=== PATIENT | female | born 1965 | race Caucasian/White ===

== ENCOUNTER 2021-05-21 12:21 | Outpatient (REF) | payer OTHER, SELFPAY ==
--- NOTE | ~2021-05-21 | MM_ITS ---
EXAMINATION: MM SCREENING DIGITAL BREAST TOMOSYNTHESIS, BILATERAL CLINICAL INFORMATION: Screening. Asymptomatic. The lifetime risk of breast cancer based on the Tyrer-Cuzick Model is 8%. COMPARISON: Mammography: 11/21/2018, 11/13/2018 (BI-RADS 0), 10/12/2017 (new baseline) TECHNIQUE: Digital breast tomosynthesis is performed in both the craniocaudal and mediolateral oblique views along with computer-aided detection (CAD). Synthesized 2D images are generated from the tomosynthesis. FINDINGS: The breasts are heterogeneously dense, which may obscure small masses (ACR BI-RADS breast composition Category c). Parenchymal pattern is similar to prior studies. There is no developing density or interval mass or architectural abnormality. The axilla and skin contours are unremarkable. Again, there are scattered bilateral round and dermal calcifications. Some focal increased calcifications are suggested anterior 3:00 left breast, likely coarse. Patient will be recalled for additional views. MM/MM tomosynthesis screening BI IMPRESSION: 1. Left: Some additional calcifications anterior 3:00 position, likely coarse. 2. Right: No mammographic evidence of malignancy. ASSESSMENT: BI-RADS 0: Incomplete - Need Additional Imaging Evaluation RECOMMENDATION: 1. Additional views of the left breast (magnification CC, magnification ML). 2. Radiology department staff will contact the patient for additional imaging. This patient's information was entered into a reminder system with a target due date for their next mammogram.
== END 2021-05-21 12:22 | disposition home or self-care (01) ==
LOC: HO.MAMMO 12:21
PROVIDERS: Visit Provider Nurse Practitioner Primary Care
DX: Z12.31 Encounter for screening mammogram for malignant neoplasm of breast (principal)
CPT/HCPCS: 77063; 77067

== ENCOUNTER 2021-06-04 13:19 | Outpatient (REF) | payer OTHER, SELFPAY ==
--- NOTE | ~2021-06-04 | MM_ITS ---
EXAMINATION: MM DIAGNOSTIC DIGITAL MAMMOGRAPHY, LEFT CLINICAL INFORMATION: Recall from screening for question of focal increased calcifications anterior 3:00 position. COMPARISON: Mammography: 05/21/2021, 11/21/2018, 11/13/2018, 09/27/2017 TECHNIQUE: Digital mammography is performed in the following views: Magnification CC, magnification ML FINDINGS: The breasts are heterogeneously dense, which may obscure small masses (ACR BI-RADS breast composition Category c). Additional magnification views show tightly grouped no calcifications anterior 3:30 o'clock position with some other scattered calcifications in the anterior mid outer left breast. There is likely some minor increased number overall 2018 but no focal significant change when compared with remote standard views. Management plan is for short interval follow-up left mammography in 6 months. Results are discussed with the patient at time of visit. MM/MM added views LT IMPRESSION: Calcifications anterior mid outer left breast without focal significant change when compared with prior standard views. ASSESSMENT: BI-RADS 3: Probably Benign RECOMMENDATION: Diagnostic left mammography in 6 months. This patient's information was entered into a reminder system with a target due date for their next mammogram.
== END 2021-06-04 13:20 | disposition home or self-care (01) ==
LOC: HO.MAMMO 13:19
PROVIDERS: PCP Nurse Practitioner Primary Care; Visit Provider Nurse Practitioner Primary Care
DX: R92.1 Mammographic calcification found on diagnostic imaging of breast (principal)
CPT/HCPCS: 77065

== ENCOUNTER 2021-12-02 14:31 | Outpatient (REF) | payer OTHER, SELFPAY ==
--- NOTE | ~2021-12-02 | MM_ITS ---
EXAMINATION: MM DIAGNOSTIC DIGITAL BREAST TOMOSYNTHESIS, LEFT CLINICAL INFORMATION: Short interval follow-up probable benign calcifications anterior 3:30 left breast. The lifetime risk of breast cancer based on the Tyrer-Cuzick Model is 9%. COMPARISON: Mammography: 06/04/2021, 05/21/2021 (BI-RADS 0), 11/13/2018, 09/27/2017 TECHNIQUE: Digital breast tomosynthesis is performed in both the craniocaudal and mediolateral oblique views along with computer-aided detection (CAD). Synthesized 2D images are generated from the tomosynthesis. Additional magnification left CC and magnification left ML x2 views are obtained. FINDINGS: The breasts are heterogeneously dense, which may obscure small masses (ACR BI-RADS breast composition Category c). Fibronodular parenchymal pattern is similar to prior studies. There is mild stable subareolar duct ectasia. No interval mass or architectural abnormality or developing density. Again, there are scattered round calcifications including loosely grouped stable calcifications posterior upper inner quadrant. The axilla and skin contours are unremarkable. Tightly grouped calcifications anterior 3:30 position are stable from prior diagnostic exam. There are no increasing calcifications or interval pleomorphic types. Calcifications will be reassessed again at next bilateral annual mammography, due in 6 months. Results are provided to the patient at time of visit by the technologist. MM/MM tomosynthesis diagnostic LT IMPRESSION: Probable benign calcifications for follow-up anterior 3:30 position are stable from prior diagnostic exam. ASSESSMENT: BI-RADS 3: Probably Benign RECOMMENDATION: Diagnostic mammography at time of annual bilateral exam, due in 6 months. This patient's information was entered into a reminder system with a target due date for their next mammogram.
== END 2021-12-02 14:32 | disposition home or self-care (01) ==
LOC: HO.MAMMO 14:31
PROVIDERS: Visit Provider Nurse Practitioner Primary Care
DX: R92.1 Mammographic calcification found on diagnostic imaging of breast (principal)
CPT/HCPCS: 77061; 77065

== ENCOUNTER 2022-08-09 12:23 | Outpatient (REF) | payer OTHER, SELFPAY ==
--- NOTE | ~2022-08-09 | MM_ITS ---
EXAMINATION: MM DIAGNOSTIC DIGITAL BREAST TOMOSYNTHESIS, BILATERAL CLINICAL INFORMATION: Due for yearly, follow-up probable benign calcifications anterior outer left breast. The lifetime risk of breast cancer based on the Tyrer-Cuzick Model is 9%. COMPARISON: Multiple prior mammography, most recent 12/02/2021. TECHNIQUE: Digital breast tomosynthesis is performed in both the craniocaudal and mediolateral oblique views along with computer-aided detection (CAD). Synthesized 2D images are generated from the tomosynthesis. Additional magnification left CC and magnification left ML views are obtained. FINDINGS: The breasts are heterogeneously dense, which may obscure small masses (ACR BI-RADS breast composition Category c). There is a fibronodular parenchymal pattern again noted. The right breast is stable with no dominant mass or architectural abnormality or developing density. The left breast has a smooth oval nodule possibly a cyst posterior central breast approximately 0.5 x 0.7 cm, increased in size from prior studies. This is noted after patient left office. Patient will be recalled for additional imaging with targeted ultrasound. The remainder the left breast parenchyma shows no significant mass or architectural abnormality or developing density. The calcifications for follow-up anterior outer breast show scattered loosely grouped stable calcifications as well as a tighter group of more numerous heterogeneous calcifications which vary in size. These calcifications are slightly increased from prior exams and stereotactic sampling is therefore recommended. Preliminary results are discussed with the patient at time of visit. MM/MM tomosynthesis diagnostic BI IMPRESSION: Left: -Subcentimeter smooth nodule posterior central breast increased in size, possibly a cyst. -Grouped heterogeneous calcifications anterior outer breast. Right: -No mammographic evidence of malignancy. ASSESSMENT: BI-RADS 4: Suspicious (subcategory 4A: Low suspicion for malignancy) RECOMMENDATION: -Targeted ultrasound left breast prior to stereotactic procedure. -Stereotactic biopsy grouped heterogeneous left breast calcifications. This patient's information was entered into a reminder system with a target due date for their next mammogram.
== END 2022-08-09 12:24 | disposition home or self-care (01) ==
LOC: HO.MAMMO 12:23
PROVIDERS: Visit Provider Nurse Practitioner Primary Care
DX: R92.1 Mammographic calcification found on diagnostic imaging of breast (principal)
CPT/HCPCS: 77062; 77066

== ENCOUNTER 2022-08-10 14:23 | Outpatient (REF) | payer OTHER, SELFPAY ==
--- NOTE | ~2022-08-10 | US_ITS ---
EXAMINATION: US DIAGNOSTIC ULTRASOUND BREAST, LEFT CLINICAL INFORMATION: Smooth oval nodule posterior central lower left breast increased in size from prior studies, possibly a cyst. COMPARISON: Prior mammography exams, most recent 08/09/2022. TECHNIQUE: Ultrasound left breast is targeted to the 4:00 through 8:00 position using grayscale imaging and color Doppler without and with harmonics. FINDINGS: There is a simple cyst 6:00 position 9 cm from nipple measuring 0.7 cm, anechoic, circumscribed, with increased through-transmission of sound. No associated color flow. There is no solid mass or architectural abnormality. Results are discussed with the patient at time of visit. Patient has appointment later this week for tissue sampling left breast calcifications unrelated to today's imaging. US/US breast LT limited IMPRESSION: -Simple cyst 6:00 position measuring 0.7 cm corresponding to recent mammography. ASSESSMENT: BI-RADS 2: Benign RECOMMENDATION: -The simple cyst is benign and does not require any special follow up. See comment. -COMMENT: Patient has appointment later this week for tissue sampling left breast calcifications unrelated to today's imaging. This patient's information was entered into a reminder system with a target due date for their next mammogram.
== END 2022-08-10 14:24 | disposition home or self-care (01) ==
LOC: HO.MAMMO 14:23
PROVIDERS: Visit Provider Nurse Practitioner Primary Care
DX: N63.25 Unspecified lump in the left breast, overlapping quadrants (principal)
CPT/HCPCS: 76642

== ENCOUNTER 2022-08-12 08:52 | Outpatient (REF) | payer OTHER, SELFPAY ==
--- NOTE | ~2022-08-12 | MM_ITS ---
EXAMINATION: STEREOTACTIC TOMOSYNTHESIS-GUIDED VACUUM-ASSISTED BREAST BIOPSY, LEFT SPECIMEN RADIOGRAPH, LEFT POST PROCEDURE DIGITAL MAMMOGRAM, LEFT CLINICAL INFORMATION: Calcifications anterior outer left breast for stereotactic sampling. COMPARISON: Mammography 08/09/2022, 12/02/2021, left breast ultrasound 08/10/2022 . TECHNIQUE/PROCEDURE: Informed consent was obtained from the patient after discussion of the benefits, risks, and alternatives to biopsy today. Patient appeared to understand. Gave opportunity for questions. Patient signed consent form. BIOPSY TABLE: [employer] Wireless Affirm Prone Biopsy System. LESION: Fine heterogeneous calcifications anterior central outer left breast. LOCAL ANESTHESIA: 10 mL carbonated 1% lidocaine; 10 mL 2% lidocaine with epinephrine. DERMATOTOMY: Single skin alvarez dermatotomy performed. NEEDLE: [employer]24 Eviva 9-gauge vacuum assisted core biopsy device. APPROACH: Caudal Cranial. TARGETING: Combination of digital breast tomosynthesis and stereotactic digital mammography used for targeting. CORES: 6. CLIP: [employer] SecurMark Cylinder-shaped marker. SPECIMEN RADIOGRAPH: Specimen radiograph is taken in separate room using digital mammography. The index calcifications are in the excised cores. There are at least 15 calcifications in the cores. POST PROCEDURE UNILATERAL DIGITAL MAMMOGRAM: The post biopsy mammogram is performed in separate room using separate digital mammography equipment from the biopsy procedure. CC and ML views are obtained. The breasts are heterogeneously dense, which may obscure small masses (breast composition category: c). The clip marker is in position. The calcifications are markedly decreased at the biopsy site. No gross hematoma. The patient tolerated the procedure well. No immediate complications. Home instructions reviewed with the patient. Final pathology results are pending. MM/MM stereotactic biopsy LT IMPRESSION: 1. Digital tomosynthesis-guided core biopsy left breast with clip placement. 2. Specimen radiograph taken and post procedure mammogram. There is satisfactory positioning of the biopsy clip. 3. Final pathology results pending. An addendum report will be issued.
[2022-08-12] MEDS: Lidocaine HCl 1 % 20 ML VIAL 9 ML SUBCUT (11:42)
[2022-08-12] MEDS: Sodium Bicarbonate 8.4% 50 MEQ/50 ML VIAL SUBCUT (11:43)
== END 2022-08-12 08:53 | disposition home or self-care (01) ==
LOC: HO.MAMMO 08:52
PROVIDERS: PCP Nurse Practitioner Primary Care; Visit Provider Surgery
DX: R92.1 Mammographic calcification found on diagnostic imaging of breast (principal)
CPT/HCPCS: 19081; 88305; 99202; A4648

== ENCOUNTER → 2022-08-19 10:23 | Outpatient (BNVA) | payer OTHER, SELFPAY | PROVIDERS: PCP Nurse Practitioner Primary Care; Visit Provider Surgery | DX: D36.9 Benign neoplasm, unspecified site (principal) | CPT/HCPCS: 99212 ==

== ENCOUNTER 2022-12-30 10:22 | Outpatient (REF) | payer OTHER, SELFPAY ==
--- NOTE | ~2022-12-30 | MM_ITS ---
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 No malignancy identified. The lifetime risk of breast cancer based on the Tyrer-Cuzick Model is 9%. COMPARISON: Mammography: Stereotactic biopsy 08/12/2022. Mammography 08/09/2022, 12/02/2021. Mammography dating back to 05/21/2021. TECHNIQUE: Digital breast tomosynthesis is performed in both the craniocaudal and mediolateral oblique views along with computer-aided detection (CAD). Synthesized 2D images are generated from the tomosynthesis. In addition, left magnification CC and mediolateral views were performed. FINDINGS: The breasts are heterogeneously dense, which may obscure small masses (ACR BI-RADS breast composition Category c). There is a cylinder shaped chip biopsy clip in the left breast anterior slightly outer aspect, marking the site of stereotactic biopsy. The biopsy and clip appears to have likely migrated approximately 1 cm anteromedial to the biopsied papilloma. There are a few residual coarse calcifications posterior and lateral to the biopsy clip, which have a benign appearance and are unchanged. No new suspicious abnormalities. There is a stable small oval circumscribed 7 mm mass in the 6:00 position of the left breast, posterior depth, which was a simple cyst on prior ultrasound. No new suspicious abnormalities within the left breast. Results are provided to the patient at time of visit by the technologist. MM/MM tomosynthesis diagnostic LT IMPRESSION: Benign findings left breast related to biopsy of benign sclerosing papilloma as detailed above. Recommend the patient return to routine annual screening mammography to include both breasts. ASSESSMENT: BI-RADS BI-RADS 2 - Benign Findings RECOMMENDATION: 1 year F/U This patient's information was entered into a reminder system with a target due date for their next mammogram.
== END 2022-12-30 10:23 | disposition home or self-care (01) ==
LOC: HO.MAMMO 10:22
PROVIDERS: PCP Nurse Practitioner Primary Care; Visit Provider Surgery
DX: D36.9 Benign neoplasm, unspecified site (principal); N63.25 Unspecified lump in the left breast, overlapping quadrants
CPT/HCPCS: 77061; 77065

== ENCOUNTER → 2022-12-30 11:30 | Outpatient (BNV) | payer OTHER, SELFPAY | PROVIDERS: PCP Nurse Practitioner Primary Care; Visit Provider Radiology Diagnostic Radiology | DX: D24.2 Benign neoplasm of left breast (principal) | CPT/HCPCS: 77061; 77065 ==

== ENCOUNTER 2023-08-11 09:20 | Outpatient (REF) | payer OTHER, SELFPAY ==
--- NOTE | ~2023-08-11 | MM_ITS ---
EXAMINATION: MM SCREENING DIGITAL BREAST TOMOSYNTHESIS, BILATERAL CLINICAL INFORMATION: Screening. Asymptomatic. COMPARISON: Mammography: This study is compared with prior exams dating back to 2019. TECHNIQUE: Digital breast tomosynthesis is performed in both the craniocaudal and mediolateral oblique views along with computer-aided detection (CAD). Synthesized 2D images are generated from the tomosynthesis. FINDINGS: The breasts are heterogeneously dense, which may obscure small masses (ACR BI-RADS breast composition Category c). There are no significant masses, abnormal calcifications, or other abnormalities. There is a tissue marker present in the left breast from prior benign percutaneous biopsy. There are few, bilateral benign calcifications in each breast. MM/MM tomosynthesis screening BI IMPRESSION: No mammographic evidence of malignancy. ASSESSMENT: BI-RADS BI-RADS 2 - Benign Findings RECOMMENDATION: Routine annual mammography screening. 1 year F/U This examination should not preclude the clinical evaluation of a suspicious palpable abnormality. This patient's information was entered into a reminder system with a target due date for their next mammogram.
== END 2023-08-11 09:21 | disposition home or self-care (01) ==
LOC: HO.MAMMO 09:20
PROVIDERS: PCP Nurse Practitioner Primary Care; Visit Provider Surgery
DX: Z12.31 Encounter for screening mammogram for malignant neoplasm of breast (principal)
CPT/HCPCS: 77063; 77067

== ENCOUNTER → 2023-08-11 10:15 | Outpatient (BNV) | payer OTHER, SELFPAY | PROVIDERS: PCP Nurse Practitioner Primary Care; Visit Provider Radiology Diagnostic Radiology | DX: Z12.31 Encounter for screening mammogram for malignant neoplasm of breast (principal) | CPT/HCPCS: 77063; 77067 ==

== ENCOUNTER 2024-08-16 09:20 | Outpatient (REF) | payer OTHER, SELFPAY ==
--- OUTSIDE RECORDS SUMMARY | 2024-08-16 11:14 | XMS_ITS | Encounter Summary ---
Author Organization [employer] Address [address] [place] [address] Care Team Providers Care Manufacturing Development Engineer Name Role Phone Florecita Ibarra Primary Care Provider [phone] Encounter Details Date Type Department Care Team (Late st Contact Info) Description 02/15/2023 Orders Only [facility] [address] [place] [address] Provider, MD Valentin Social History Tobacco Use Types Packs/Day Years Used Date Smoking Tobacco: Never Smokeless Tobacco: Never Comments Unknown Sex and Gender Information Value Date Recorded Sex Assigned at Female 03/22/2022 10:23 AM EDT Legal Sex Female 10:23 AM EDT Gender Identity Female 03/22/2022 10:23 AM EDT Sexual Orientation Straight 03/22/2022 10 :23 AM EDT documented as of this encounter Plan of Treatment Not on file documented as of this encounter Procedures Procedure Name Priority Date/Time Associated Diagnosis Comments MAMMOGRAPHY Routine 12/30/2022 documented in this encounter Results * Hm Mammography (12/30/2022) Anatomical Region Laterality Modality Other us Historical Provider HEALTH MAINTENANCE Final Result documented in this encounter Visit Diagnoses Not on filedocumented in this encounter Care Teams Manufacturing Development Engineer Relationship Specialty Start Date End Date Florecita Ibarra ANP [address] [place] [address] PCP - General Family Medicine 11/13/19 documented as of this encounter
--- OUTSIDE RECORDS SUMMARY | 2024-08-16 11:14 | XMS_ITS | Clinical Summary ---
Author Organization [employer] Address 75 [facility] 7t [place] [address] Care Team Providers Care Travel Service Consultant Name Role Phone Florecita Ibarra Primary Care Provider [phone] Allergies No known active allergies Medications diphenhydrAMINE (BENADryl) 25 MG tablet Take 1 tablet (25 mg) by mouth 2 times daily. 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 90 tablet 2 024 Active atorvastatin (Lipitor) 20 MG tablet TAKE 1 TABLET BY MOUTH EVERYDAY AT BEDTIME 90 tablet 025 Active metFORMIN (Glucophage) 500 MG tabletIndications:Hy perglycemia TAKE 1 TABLET BY MOUTH TWICE A DAY WITH BREAKFAST AND DINNER 180 tablet 025 Active chlorthalidone (Hygroton) 50 MG tabletIndications:Es sential hypertension TAKE 1 TABLET BY MOUTH EVERY DAY IN THE MORNING 90 tablet 1 025 Active fenofibrate micronized (Antara) 130 MG capsuleIndications:P ure hyperglyceridemia TAKE 1 CAPSULE (130 MG) BY MOUTH ONCE PER DAY. 90 capsule 025 Active atenolol (Tenormin) 50 MG tabletIndications:Es sential hypertension TAKE 1 TABLET BY MOUTH EVERY DAY IN THE MORNING 90 tablet 025 Active FreeStyle lancetsIndications:H yperglycemia 1 each by Other route 2 times daily. USE TO TEST BLOOD SUGAR TWICE A DAY 100 each 2 025 Active FreeStyle lancetsIndications:H yperglycemia USE 1 LANCET BY TO SKIN ROUTE 2 TIMES EVERY DAY 100 each 11 024 2024 Discontinued Encounters Date Type Department Care Team Description 07/31/2024 Refill [facility] [address] [place] [address] Florecita Ibarra ANP Hyperglycemia 06/13/2024 Refill [facility] [address] [place] [address] Florecita Ibarra ANP Essential hypertension 06/08/2024 Refill [facility] [address] [place] [address] Florecita Ibarra ANP Hyperglycemia; Essential hypertension; Pure hyperglyceridemia 06/04/2024 Refill [facility] [address] [place] [address] Florecita Ibarra ANP 05/31/2024 Patient Outreach [address] [address] Florecita Ibarra ANP Pre-visit Planning (SDOH Screening negative and Tobacco screening negative) from Last 3 Months Social History Tobacco Use Types Packs/Day Years Used Date Smoking Tobacco: Never Smokeless Tobacco: Never Tobacco Cessation:Counseling Given: Not Answered Housing Stability Answer Date Recorded What is your housing situation today? I have martita garcia 05/31/[address] you li ve. Do you have problems with any of the following? None of the above 05/31/2024 Food Insecurity Answer Date Recorded Within the past 12 months, y ou worried that your food would run out before you got money to buy more: Never True 05/31/2024 Within the past 12 months,th e food you bought just didn't last and you didn't have enough money to get more: Never True 01/2025 Transportation Answer Date Recorded In the past 12 months, has l ack of transportation kept you from medical appts, meetings, work or from getting things needed for daily living? No 05/31/2024 Utilities Answer Date Recorded In the past 12 months, has t he electric, gas, oil or water company threatened to shut off services in your home? No 05/31/2024 Internet Access Answer Date Recorded Internet Access Q1 No 05/31/2024 Internet Access Q2 I do not want or need it 01/2025 Comments Unknown Sex and Gender Information Value Date Recorded Sex Assigned at Female 03/22/2022 10:23 AM EDT Legal Sex Female 10:23 AM EDT Gender Identity Female 03/22/2022 10:23 AM EDT Sexual Orientation Straight 03/22/2022 10 :23 AM EDT Last Filed Vital Signs Vital Sign Reading Time Taken Comments Blood Pressure 112/66 11/03/2022 9:32 AM EDT Pulse 94 11/03/2022 9:32 AM EDT Temperature 36.7 ??C (98 ??F) 11/03/2022 9:32 AM EDT Respiratory Rate 16 11/03/2022 9:32 AM EDT Oxygen Saturation 98% 11/03/2022 9:32 AM EDT Inhaled Oxygen Concentration - - Weight 65.4 kg (144 lb 3.2 oz) 11/01/2022 9:45 A M EDT Height 162.6 cm (5' 4 ) 11/03/2022 9:32 AM EDT Body Mass Index 26.37 11/01/2022 9:45 AM EDT Plan of Treatment Health Maintenance Due Date Last Done Comments CT Colonography 1963 Colonoscopy 1963 Colorectal Cancer Screening 1963 Depression Screening 1963 FIT DNA/Cologuard 1963 FIT 1963 FOBT 1963 Sigmoidoscopy 1963 Alcohol/Substance Use Screening 1975 Pap Smear 1984 Pneumococcal Vaccine: 50+ Years (2 of 2 - PCV) 05/14/2020 05/14/2019 Cervical Cancer Screening 12/07/2022 HPV/Cotest 12/07/2022 12/07/2017 SDOH Screening 05/31/2025 05/31/2024 Tobacco Screening 05/31/2025 05/31/2024 Mammogram 09/12/2025 09/13/2023, 04/07/2023, 08/11/2023, Additional history exists Lipid Panel 01/09/2026 01/09/2021 DTaP/Tdap/Td Vaccines (2 - Td or Tdap) 05/14/2029 05/14/2019 RSV Patients and Patients Aged 60 years or older (1 - 1-dose 75+ series) 2038 HIV Screening Completed 01/09/2021 Hepatitis C Screening Completed 01/09/2021 Zoster Vaccines Completed 06/03/2021, 03/20/2021 COVID-19 Vaccine Completed 01/21/2024, 11/2020, 09/29/2020 Influenza Vaccine Completed 01/21/2024, , 03/26/2020, Additional history exists HIB Vaccines Aged Out No longer eligi ble based on patient's age to complete this topic HPV Vaccines Aged Out No longer eligi ble based on patient's age to complete this topic Hepatitis A Vaccines Aged Out No long er eligible based on patient's age to complete this topic Hepatitis B Vaccines Aged Out No long er eligible based on patient's age to complete this topic IPV Vaccines Aged Out No longer eligi ble based on patient's age to complete this topic Meningococcal Vaccine Aged Out No jak fernandez eligible based on patient's age to complete this topic RSV under 20 months Aged Out No longe r eligible based on patient's age to complete this topic Rotavirus Vaccines Aged Out No longer eligible based on patient's age to complete this topic Procedures Procedure Name Priority Date/Time Associated Diagnosis Comments MAMMOGRAPHY Routine 09/13/2023 11:33 AM EDT ZZZ HISTORICAL HEPATITIS C AB W/REFL TO HCV RNA, QN, PCR Routine 01/09/2021 8:40 AM EDT HIV 1/2 ANTIGEN/ANTIBODY, FOURTH GENERATION W/RFL Routine 01/09/2021 8:40 AM EDT LIPID PANEL, STANDARD Routine 01/09/2021 8:40 AM EDT ZZZ HISTORICAL HPV MRNA E6/E7 Routine 12/07/2017 10:43 AM EDT from Last 3 Months or Most Recently Relevant to Health Maintenance Results * Mammography (09/13/2023 11:33 AM EDT) Mammogram BIRADS 2 Normal, Abnormal, BIRADS 1 , BIRADS 2 Anatomical Region Laterality Modality Other Historical Provider HEALTH MAINTENANCE Final Result * HEPATITIS C AB W/REFL TO HCV RNA, QN, PCR (01/09/2021 8:40 AM EDT) HEPATITIS C ANTIBODY NON-REACT ADRI NON-REACT ADRI [facility] INDEX 0.01 <1.00 [facility] Comment: ?? HCV antibody was non-reactive. There is no laboratory ?? evidence of HCV infection. ?? In most cases, no further action is required. However, if recent HCV exposure is suspected, a test for HCV RNA (test code 94005) is suggested. ?? For additional information please refer to http://Context Matters.Shuttlerock/faq/TTM85i6 (This link is being provided for informational/ educational purposes only.) ?? 01/09/2021 8:40 AM EDT Florecita Ibarra ANP HISTORICAL/NON ORDERABLE LABS Fi nal Result [facility] [address] * HIV 1/2 ANTIGEN/ANTIBODY,FOURTH GENERATION W/RFL (01/09/2021 8:40 AM EDT) HIV-1/2 ANTIGEN AND ANTIBODIES, 4TH GENERATION W/ REFLEX NON-REACT ADRI NON-REACT ADRI [facility] Comment: HIV-1 antigen and HIV-1/HIV-2 antibodies were not detected. There is no laboratory evidence of HIV infection. ?? PLEASE NOTE: This information has been disclosed to you from records whose confidentiality may be protected by state law. ??If your state requires such protection, then the state law prohibits you from making any further disclosure of the information without the specific written consent of the person to whom it pertains, or as otherwise permitted by law. A general authorization for the release of medical or other information is NOT sufficient for this purpose. ? For additional information please refer to http://Context Matters.Shuttlerock/faq/BST001 (This link is being provided for informational/ educational purposes only.) ? The performance of this assay has not been clinically validated in patients less than 2 years old. ?? 01/09/2021 8:40 AM EDT Florecita Ibarra ANP LAB BLOOD ORDERABLES Final Resul t Performing Organization Address [facility] [[email or web address]] de Phone Number [facility] [address] [place] [address], * (ABNORMAL) LIPID PANEL, STANDARD (01/09/2021 8:40 AM EDT) Chol/HDLC Ratio 4.3 <5.0 (calc) [facility] Cholesterol, Total 150 <200 mg/dL [facility] HDL Cholesterol 35(L) > OR = 50 mg/dL [facility] LDL Cholesterol 87 mg/dL (calc) [facility] Comment: Reference range: <100 ?? Desirable range <100 mg/dL for primary prevention; ?? <70 mg/dL for patients with CHD or diabetic patients ?? with > or = 2 CHD risk factors. ?? LDL-C is now calculated using the Carolyn ?? calculation, which is a validated novel method providing ?? better accuracy than the Friedewald equation in the ?? estimation of LDL-C. ?? Mino VENTURA et al. KADE. 2013;310(19): 7225-8052 ?? (http://education.Glow/faq/FUQ927) Non-HDL Cholesterol 115 <130 mg/dL (calc) [facility] Comment: For patients with diabetes plus 1 major ASCVD risk ?? factor, treating to a non-HDL-C goal of <100 mg/dL ?? (LDL-C of <70 mg/dL) is considered a therapeutic ?? option. Triglycerides 182(H) <150 mg/dL [facility] 01/09/2021 8:40 AM EDT us Florecita Ibarra ANP LAB BLOOD ORDERABLES Final Resul t Performing Organization Address [facility] Phone Number [facility] [address] [place] [address], * HPV mRNA E6/E7 (12/07/2017 10:43 AM EDT) HPV mRNA E6/E7 Not Detected NOT DETECTED [facility] Comment: This test was performed using the APTIMA(R) HPV Assay ([employer] This assay detects E6/E7 viral messenger RNA (mRNA) from 14 high-risk HPV types (16,18,31,33,35,39,45,51, 52,56,58,59,66,68). For additional information please refer to: http://education.Shuttlerock/faq/RLN770o3 (This link is being provided for informational/ educational purposes only.) The analytical performance characteristics of this assay have been determined by [employer] [place], [place]. The modifications have not been cleared or approved by the FDA. This assay has been validated pursuant to the CLIA regulations and is used for clinical purposes. Test Performed by [facility] [place], [employer] [place], [address] [place] [address] aLrry Jennings M.D., Ph.D., Director of Laboratories , CLIA [id number] Please note: ??Effective 02/02/2016, HPV testing will be performed using [employer]'s APTIMA test which targets mRNA. Detecting mRNA instead of DNA, as in older methods, offers significant improvements in specificity. 12/07/2017 10:4 3 AM EDT Farideh Noe CNM HISTORICAL/NON ORDERABLE LABS Final Result [facility] [address] from Last 3 Months or Most Recently Relevant to Health Maintenance Insurance [facility] DIRECT Care Teams Travel Service Consultant Relationship Specialty Start Date End Date Florecita Ibarra ANP [address] [place] [id number] PCP - General Family Medicine 11/13/19
--- OUTSIDE RECORDS SUMMARY | 2024-08-16 11:14 | XMS_ITS | Encounter Summary ---
Author Organization [employer] Address [address] [facility] 7t [place] [address] Care Team Providers Care Director Radiation Oncology Name Role Phone Florecita Ibarra Primary Care Provider [phone] Reason for Visit * Reason Comments Med Refill Encounter Details Date Type Department Care Team (Late st Contact Info) Description 03/16/2023 Refill [facility] [address] [place] [address] Jessie Coleman MD [address] [place] [address] Social History Tobacco Use Types Packs/Day Years [...] on file documented as of this encounter Visit Diagnoses Not on filedocumented in this encounter Care Teams Director Radiation Oncology Relationship Specialty Start Date End Date Florecita Ibarra ANP [address] [place] [address] PCP - General Family Medicine 11/13/19 documented as of this encounter
--- OUTSIDE RECORDS SUMMARY | 2024-08-16 11:14 | XMS_ITS | Encounter Summary ---
Author Organization [employer] Address [address] [facility] 7t [place] [address] Care Team Providers Care General Operations Manager Name Role Phone Florecita Ibarra Primary Care Provider [phone] Reason for Visit * Reason Comments Med Refill Encounter Details Date Type Department Care Team ([facility] st Contact Info) Description 07/31/2024 Refill [facility] [address] [place] [address] Florecita Ibarra ANP [address] [place] [address] Hyperglycemia Social History Tobacco Use Types Packs/Day Years Used Date Smoking Tobacco: Never Smokeless Tobacco: Never Housing Stability Answer Date Recorded What is [...] documented as of this encounter Visit Diagnoses Diagnosis Hyperglycemia Other abnormal glucose documented in this encounter Care Teams General Operations Manager Relationship Specialty Start Date End Date Florecita Ibarra ANP [address] [place] [address] PCP - General Family Medicine 11/13/19 documented as of this encounter
--- OUTSIDE RECORDS SUMMARY | 2024-08-16 11:14 | XMS_ITS | Encounter Summary ---
Author Organization [employer] Address [address] [facility] 7t [place] [address] Care Team Providers Care Verification Rep Name Role Phone Florecita Ibarra Primary Care Provider [phone] Reason for Visit * Reason Comments Med Refill Encounter Details Date Type Department Care Team (Late st Contact Info) Description 01/19/2024 Refill [facility] [address] [place] [address] Florecita Ibarra ANP [address] [place] [address] Pure hyperglyceridemia Social History Tobacco Use Types Packs/Day Years [...] as of this encounter Visit Diagnoses Diagnosis Pure hyperglyceridemia documented in this encounter Care Teams Verification Rep Relationship Specialty Start Date End Date Florecita Ibarra ANP [address] [place] [address] PCP - General Family Medicine 11/13/19 documented as of this encounter
--- OUTSIDE RECORDS SUMMARY | 2024-08-16 11:14 | XMS_ITS | Encounter Summary ---
Author Organization [employer] Address [address] [facility] 7t [place] [address] Care Team Providers Care Credit Support Specialist Name Role Phone Florecita Ibarra Primary Care Provider [phone] Encounter Details Date Type Department Care Team (Late st Contact Info) Description 09/13/2023 Abstract [facility] [address] [place] [address] Florecita Ibarra ANP [address] [place] [address] Social History Tobacco Use Types Packs/Day Years [...] Comments MAMMOGRAPHY Routine 09/13/2023 11:33 AM EDT documented in this encounter Results * Mammography (09/13/2023 11:33 AM EDT) Mammogram BIRADS 2 Normal, Abnormal, BIRADS 1 , BIRADS 2 Anatomical Region Laterality Modality Other Historical Provider HEALTH MAINTENANCE Final Result documented in this encounter Visit Diagnoses Not on filedocumented in this encounter Care Teams Credit Support Specialist Relationship Specialty Start Date End Date Florecita Ibarra ANP [address] [place] [address] PCP - General Family Medicine 11/13/19 documented as of this encounter
--- OUTSIDE RECORDS SUMMARY | 2024-08-16 11:14 | XMS_ITS | Encounter Summary ---
Author Organization [employer] Address [address] [facility] 7t [place] [address] Care Team Providers Care Funeral Greeter Name Role Phone Florecita Ibarra Primary Care Provider Encounter Details Date Type Department Care Team (Late st Contact Info) Description 12/20/2022 Orders Only [facility] [address] [place] [address] Lorna Whitten LPN Social History Tobacco Use Types Packs/Day Years [...] on filedocumented in this encounter Care Teams Funeral Greeter Relationship Specialty Start Date End Date Florecita Ibarra ANP [address] [place] [address] PCP - General Family Medicine 11/13/19 documented as of this encounter
--- OUTSIDE RECORDS SUMMARY | 2024-08-16 11:14 | XMS_ITS | Encounter Summary ---
Author Organization [employer] Address 75 [facility] 7t [place] [address] Care Team Providers Care Pool Table Mechanic Name Role Phone Florecita Ibarra Primary Care Provider [phone] Reason for Visit * Reason Comments Med Refill Encounter Details Date Type Department Care Team (Late st Contact Info) Description 04/17/2023 Refill [facility] [address] [place] [address] Jessie Coleman MD [address] [place] [address] Social History Tobacco Use Types Packs/Day Years [...] on filedocumented in this encounter Care Teams Pool Table Mechanic Relationship Specialty Start Date End Date Florecita Ibarra ANP [address] [place] [address] PCP - General Family Medicine 11/13/19 documented as of this encounter
--- OUTSIDE RECORDS SUMMARY | 2024-08-16 11:14 | XMS_ITS | Encounter Summary ---
Author Organization [employer] Address [address] [facility] 7t [place] [address] Care Team Providers Care Mangle Catcher Name Role Phone Florecita Ibarra Primary Care Provider [phone] Encounter Details Date Type Department Care Team (Late st Contact Info) Description 12/28/2022 Orders Only [facility] PEDS [address] [place] [address] Ruby Cardoza LPN Social History Tobacco Use Types Packs/Day [...] on filedocumented in this encounter Care Teams Mangle Catcher Relationship Specialty Start Date End Date Florecita Ibarra ANP [address] [place] [address] PCP - General Family Medicine 11/13/19 documented as of this encounter
--- OUTSIDE RECORDS SUMMARY | 2024-08-16 11:14 | XMS_ITS | Encounter Summary ---
Author Organization [employer] Address [address] [facility] 7t [place] [address] Care Team Providers Care Reel Assembler Name Role Phone Florecita Ibarra Primary Care Provider [phone] Encounter Details Date Type Department Care Team (Late st Contact Info) Description 09/13/2023 Abstract [facility] [address] [place] [address] Florecita bIarra ANP [address] [place] [address] Social History Tobacco Use Types Packs/Day Years [...] on filedocumented in this encounter Care Teams Reel Assembler Relationship Specialty Start Date End Date Florecita Ibarra ANP [address] [place] [address] PCP - General Family Medicine 11/13/19 documented as of this encounter
--- OUTSIDE RECORDS SUMMARY | 2024-08-16 11:15 | XMS_ITS | Encounter Summary ---
Author Organization [employer] Address [address] [facility] 7t [place] [address] Care Team Providers Care Hospital Administrator Name Role Phone Florecita Ibarra Primary Care Provider [phone] Reason for Visit * Reason Onset Date Comments Med Refill 01/19/2024 Encounter Details Date Type Department Care Team ([facility] st Contact Info) Description 01/19/2024 Telephone [facility] [address] [place] [address] Florecita Ibarra ANP [address] [place] [address] Med Refill Social History Tobacco Use Types Packs/Day Years Used Date Smoking Tobacco: Never Smokeless Tobacco: Never Comments Unknown Sex and Gender Information Value Date Recorded Sex Assigned at Female 03/22/2022 10:23 AM EDT Legal Sex Female 10:23 AM EDT Gender Identity Female 03/22/2022 10:23 AM EDT Sexual Orientation Straight 03/22/2022 10 :23 AM EDT documented as of this encounter Miscellaneous Notes * Telephone Encounter - Lorna Whitten LPN - 01/19/2024 4:25 PM EDT Medication pended to PCP. * Telephone Encounter - Cheryl Weeks - 01/19/2024 4:24 PM EDT TC from pt requesting medication refill. Medications needing refill : FREESTYLE LITE test strip To be sent to: [facility] Pharmacy documented in this encounter Plan of Treatment Not on file documented as of this encounter Visit Diagnoses Not on filedocumented in this encounter Care Teams Hospital Administrator Relationship Specialty Start Date End Date Florecita Ibarra ANP [address] [place] [address] PCP - General Family Medicine 11/13/19 documented as of this encounter
--- OUTSIDE RECORDS SUMMARY | 2024-08-16 11:16 | XMS_ITS | Encounter Summary ---
Author Organization [employer] Address 75 [facility] [address] [address] Care Team Providers Care Vending Supervisor Name Role Phone Florecita Ibarra Primary Care Provider [phone] Encounter Details Date Type Department Care Team (Late st Contact Info) Description 06/02/2022 Telephone [facility] [address] [place] [address] Florecita Ibarra ANP [address] [place] [address] Social History Tobacco Use Types Packs/Day Years Used Date Smoking Tobacco: Never Assessed Comments Unknown Sex and Gender Information Value [...] on filedocumented in this encounter Care Teams Vending Supervisor Relationship Specialty Start Date End Date Florecita Ibarra ANP [address] [place] [address] PCP - General Family Medicine 11/13/19 documented as of this encounter
--- OUTSIDE RECORDS SUMMARY | 2024-08-16 11:16 | XMS_ITS | Encounter Summary ---
Author Organization [employer] Address 75 [facility] 7t [place] [address] Care Team Providers Care Garment Mender Name Role Phone Florecita Ibarra Primary Care Provider [phone] Reason for Visit * Reason Comments Med Refill Encounter Details Date Type Department Care Team (Late st Contact Info) Description 01/19/2024 Refill [facility] [address] [place] [address] Eloina Perales MD [address] [place] [address] Hyperglycemia Social History Tobacco Use Types Packs/Day [...] glucose documented in this encounter Care Teams Garment Mender Relationship Specialty Start Date End Date Florecita Ibarra ANP [address] [place] [address] PCP - General Family Medicine 11/13/19 documented as of this encounter
--- OUTSIDE RECORDS SUMMARY | 2024-08-16 11:16 | XMS_ITS | Encounter Summary ---
Author Organization [employer] Address [address] [facility] 7t [place] [address] Care Team Providers Care Insurance Agency Owner Name Role Phone Florecita Ibarra Primary Care Provider Reason for Visit * Reason Comments Med Refill Encounter Details Date Type Department Care Team (Late st Contact Info) Description 04/16/2024 Refill [facility] [address] [place] [address] Florecita Ibarra ANP [address] [place] [address] Pure hyperglyceridemia; Essential hypertension Social History Tobacco Use Types Packs/Day Years [...] this encounter Visit Diagnoses Diagnosis Pure hyperglyceridemia Essential hypertension Unspecified essential hypertension documented in this encounter Care Teams Insurance Agency Owner Relationship Specialty Start Date End Date Florecita Ibarra ANP [address] [place] [address] PCP - General Family Medicine 11/13/19 documented as of this encounter
--- OUTSIDE RECORDS SUMMARY | 2024-08-16 11:16 | XMS_ITS | Encounter Summary ---
Author Organization [employer] Address [address] [facility] [address] [place] [address] Care Team Providers Care Line Puller Name Role Phone Florecita Ibarra Primary Care Provider [phone] Encounter Details Date Type Department Care Team (Late st Contact Info) Description 08/16/2022 Abstract [facility] MEDICINE [address] [place] [address] Florecita Ibarra ANP [address] [place] [address] Social History Tobacco Use Types Packs/Day Years [...] Procedure Name Priority Date/Time Associated Diagnosis Comments EXTERNAL BREAST BIOPSY Routine 08/12/2022 10:09 AM EDT documented in this encounter Results * External Breast Biopsy (08/12/2022 10:09 AM EDT) Anatomical Region Laterality Modality Breast N/A Mammography Narrative 08/12/2022 10:09 AM EDT Left breast stereotactic biopsy completed results were ??benign us Historical Provider MD FRAIRE BI PROCEDURES Final R esult documented in this encounter Visit Diagnoses Not on filedocumented in this encounter Care Teams Line Puller Relationship Specialty Start Date End Date Florecita Ibarra ANP [address] [place] [address] PCP - General Family Medicine 11/13/19 documented as of this encounter
--- OUTSIDE RECORDS SUMMARY | 2024-08-16 11:16 | XMS_ITS | Encounter Summary ---
Author Organization [employer] Address [address] [facility] [address] [place] [address] Care Team Providers Care Payroll Clerk Name Role Phone Florecita Ibarra Primary Care Provider [phone] Reason for Visit * Reason Comments Med Refill Encounter Details Date Type Department Care Team (Late st Contact Info) Description 01/19/2024 Refill [facility] MEDICINE [address] [place] [address] Eloina Perales MD [address] [place] [address] Hyperglycemia Social History Tobacco Use Types Packs/Day [...] glucose documented in this encounter Care Teams Payroll Clerk Relationship Specialty Start Date End Date Florecita Ibarra ANP [address] [place] [address] PCP - General Family Medicine 11/13/19 documented as of this encounter
== END 2024-08-16 09:21 | disposition home or self-care (01) ==
LOC: HO.MAMMO 09:20
PROVIDERS: PCP Nurse Practitioner Primary Care; Visit Provider Nurse Practitioner Primary Care
DX: Z12.31 Encounter for screening mammogram for malignant neoplasm of breast (principal)
CPT/HCPCS: 77063; 77067

== ENCOUNTER → 2024-08-16 09:30 | Outpatient (BNV) | payer OTHER, SELFPAY | PROVIDERS: PCP Nurse Practitioner Primary Care; Visit Provider Internal Medicine | DX: Z12.31 Encounter for screening mammogram for malignant neoplasm of breast (principal) | CPT/HCPCS: 77063; 77067 ==

== ENCOUNTER 2024-11-12 15:53 | Outpatient (REF) | payer MEDICAID, SELFPAY | END 2024-11-12 15:54 | disposition home or self-care (01) | LOC: HO.HHCX 15:53 | PROVIDERS: PCP Nurse Practitioner Primary Care; Visit Provider Nurse Practitioner Primary Care | DX: Z13.89 Encounter for screening for other disorder (principal) ==

== ENCOUNTER 2024-11-13 07:51 | Outpatient (REF) | payer MEDICAID, SELFPAY ==
--- NOTE | ~2024-11-13 | XR_ITS ---
EXAMINATION: XR WRIST, LEFT CLINICAL INFORMATION: atraumatic joint pain COMPARISON: None available. TECHNIQUE: PA, lateral, oblique, and scaphoid views of the left wrist. FINDINGS: No fracture, dislocation, or suspicious bone lesion. There is normal alignment. Carpal bones intact and normally aligned. There is mild radiocarpal joint space narrowing. 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 There is negative ulnar variance. There are normal-appearing soft tissues. XR/XR wrist LT min 3V IMPRESSION: 1. No acute bony abnormalities. 2. Mild osteoarthritis involving the radiocarpal joint, first CMC joint, and STT joints. Electronically signed by: Tereso Bhatt MD 11/13/2024 08:57 AM EDT
--- OUTSIDE RECORDS SUMMARY | 2024-11-13 07:56 | XMS_ITS | Encounter Summary ---
Author Organization [employer] Address [address] [facility] [address] [place] [address] Care Team Providers Care Card Grader Name Role Phone Florecita Ibarra Primary Care Provider [phone] Encounter Details Date Type Department Care Team (Late st Contact Info) Description 09/13/[address] [address] Florecita Ibarra ANP [address] [place] [address] Social History Tobacco Use Types Packs/Day Years Used Date Smoking Tobacco: Never Smokeless Tobacco: Never Comments Unknown Sex and Gender Information Value Date Recorded Sex Assigned at Female 03/22/2022 10:23 AM EDT Legal Sex Female 10:23 AM EDT Gender Identity Female 03/22/2022 10:23 AM EDT Sexual Orientation Straight 03/22/2022 10 :23 AM EDT documented as of this encounter Plan of Treatment Upcoming Encounters Date Type Department Care Team (Late st Contact Info) Description 12/04/2024 2:45 PM EDT Procedure Visit [address] [address] Farideh Noe CNM [address] [place] [address] 12/14/2024 9:30 AM EDT Clinical Support [address] [id number] 02/14/2025 9:00 AM EDT Office Visit [address] [address] Florecita Ibarra ANP [address] [place] [address] documented as of this encounter Visit Diagnoses Not on filedocumented in this encounter Care Teams Card Grader Relationship Specialty Start Date End Date Florecita Ibarra ANP [address] [place] [address] PCP - General Family Medicine 11/13/19 documented as of this encounter
[2024-11-13 11:24] LABS: MANUAL DIFF FLAG NO
[2024-11-13 11:32] LABS: Basophils Absolute Auto 0.1 X10*3/uL (0.0-0.2); Basophils Percent Auto 1.1 % (0-2); Eosinophils Absolute Auto 0.6 X10*3/uL (0.0-0.4); Eosinophils Percent Auto 6.8 % (0-4); Hematocrit 37.9 % (37.0-47.0); Hemoglobin 12.4 g/dl (12.0-16.0); Imm Gran Abs Auto 0.02 X10*3/uL (0.00-0.03); Imm Gran Pct Auto 0.2 % (0.0-0.4); Lymphocytes Absolute Auto 1.8 X10*3/uL (1.2-4.9); Lymphocytes Percent Auto 21.4 % (20-40); Mean Corpuscular HGB Conc 32.7 g/dl (31.0-35.0); Mean Corpuscular Hemoglobin 28.6 pg (27.0-33.0); Mean Corpuscular Volume 87.5 fL (80.0-98.0); Mean Platelet Volume 10.3 fL (9.4-12.3); Monocytes Absolute Auto 0.8 X10*3/uL (0.1-1.2); Monocytes Percent Auto 9.2 % (2-11); Neutrophils Absolute Auto 5.3 x10*3/uL (2.0-8.3); Neutrophils Percent Auto 61.3 % (45-73); Platelet Count 323 X10*3/uL (160-400); Red Blood Count 4.33 X10*6/uL (4.20-5.50); Red Cell Distribution Width 13.1 % (11.0-16.0); White Blood Count 8.6 X10*3/uL (4.8-10.8)
[2024-11-13 11:57] LABS: Alanine Aminotransferase 34 U/L (0-31); Albumin Level 4.6 g/dL (3.5-5.0); Alkaline Phosphatase 34 U/L (39-117); Anion Gap 14 (12-20); Aspartate Amino Transferase 28 U/L (5-31); Bilirubin Total 0.4 mg/dL (0.0-1.0); Blood Urea Nitrogen 45 mg/dL (9-16); Calcium 9.7 mg/dL (8.4-10.2); Carbon Dioxide 23 mmol/L (22-29); Chloride 107 mmol/L (96-108); Cholesterol 173 mg/dL (<200); Estimated Glomerular Filt Rate 46; Glucose Random 111 mg/dL (60-115); HDL Cholesterol 29 mg/dL (>40); LDL Cholesterol Calculated 109 mg/dL (<100); Potassium 3.6 mmol/L (3.3-5.1); Sodium 140 mmol/L (135-145); Total Protein 7.1 g/dL (6.5-8.0); Triglycerides 178 mg/dL (<150)
[2024-11-13 12:13] LABS: Vitamin B12 496 pg/mL (200-900)
[2024-11-13 12:14] LABS: TSH reflex Free T4 1.26 uIU/mL (0.32-4.0)
== END 2024-11-13 07:52 | disposition home or self-care (01) ==
LOC: HO.HHCX 07:51
PROVIDERS: PCP Nurse Practitioner Primary Care; Visit Provider Nurse Practitioner Primary Care
DX: M25.532 Pain in left wrist (principal); R29.898 Other symptoms and signs involving the musculoskeletal system; I15.2 Hypertension secondary to endocrine disorders; E11.59 Type 2 diabetes mellitus with other circulatory complications; Z00.00 Encounter for general adult medical examination without abnormal findings
CPT/HCPCS: 36415; 73110; 80053; 80061; 82607; 84443; 85025

== ENCOUNTER → 2024-11-13 08:33 | Outpatient (BNV) | payer MEDICAID, SELFPAY | PROVIDERS: PCP Nurse Practitioner Primary Care; Visit Provider Radiology Diagnostic Radiology | DX: M25.532 Pain in left wrist (principal) | CPT/HCPCS: 73110 ==

== ENCOUNTER 2024-12-25 08:20 | Outpatient (REF) | payer MEDICAID, SELFPAY ==
--- NOTE | 2024-12-25 08:25 | EMG_ITS ---
Bilateral median and ulnar motor and sensory studies were performed bilateral radial and median and lateral antecubital brachial sensory studies were performed and paraspinal muscles were tested with a needle. Impression: Mild bilateral ulnar neuropathy across cubital tunnel MTDD
--- OUTSIDE RECORDS SUMMARY | 2024-12-25 08:28 | XMS_ITS | Encounter Summary ---
Author Organization [facility] [employer] Address [address] [facility] [address] [place] [address] Care Team Providers Care Cnc Machinist Name Role Phone Florecita Ibarra Primary Care Provider [phone] Encounter Details Date Type Department Care Team (Late st Contact Info) Description 09/13/2023 Abstract [facility] MEDICINE [address] [place] [address] Florecita Ibarra ANP [address] [place] [address] Social History Tobacco Use Types Packs/Day Years [...] Care Team (Late st Contact Info) Description 01/31/2025 3:00 PM EDT Office Visit [facility] OPTOMETRY [address] [place] [address] Edson, Misti, OD [address] [place] [address] 02/14/2025 9:00 AM EDT Office Visit [facility] MEDICINE [address] [place] [address] Florecita Ibarra, ANP [address] [place] [address] documented as of this encounter Visit Diagnoses Not on filedocumented in this encounter Care Teams Cnc Machinist Relationship Specialty Start Date End Date Florecita Ibarra ANP [address] [place] [address] PCP - General Family Medicine 11/13/19 documented as of this encounter
== END 2024-12-25 08:21 | disposition home or self-care (01) ==
LOC: HO.NEURO 08:20
PROVIDERS: PCP Nurse Practitioner Primary Care; Visit Provider Nurse Practitioner Primary Care
DX: R29.898 Other symptoms and signs involving the musculoskeletal system (principal)
CPT/HCPCS: 95886; 95911

== ENCOUNTER → 2024-12-25 08:25 | Outpatient (BNV) | payer MEDICAID, SELFPAY | PROVIDERS: PCP Nurse Practitioner Primary Care; Visit Provider Psychiatry & Neurology Neurology | DX: G56.03 Carpal tunnel syndrome, bilateral upper limbs (principal) | CPT/HCPCS: 95886; 95911 ==

== ENCOUNTER 2025-02-14 09:40 | Outpatient (REF) | payer MEDICAID, SELFPAY ==
[2025-02-14 11:54] LABS: Anion Gap 13 (12-20); Blood Urea Nitrogen 25 mg/dL (9-16); Calcium 10.3 mg/dL (8.4-10.2); Carbon Dioxide 25 mmol/L (22-29); Chloride 105 mmol/L (96-108); Estimated Glomerular Filt Rate 54; Potassium 3.8 mmol/L (3.3-5.1); Sodium 139 mmol/L (135-145)
== END 2025-02-14 09:41 | disposition home or self-care (01) ==
LOC: HO.HHCL 09:40
PROVIDERS: PCP Nurse Practitioner Primary Care; Visit Provider Nurse Practitioner Primary Care
DX: E11.59 Type 2 diabetes mellitus with other circulatory complications (principal); I15.2 Hypertension secondary to endocrine disorders
CPT/HCPCS: 36415; 80048; 82043; 82570

== ENCOUNTER 2025-03-06 19:32 | Outpatient (REF) | payer MEDICAID, SELFPAY | END 2025-03-06 19:33 | disposition home or self-care (01) | LOC: HO.HHCLNP 19:32 | PROVIDERS: Visit Provider Advanced Practice Midwife | DX: Z12.4 Encounter for screening for malignant neoplasm of cervix (principal); Z11.51 Encounter for screening for human papillomavirus (HPV) | CPT/HCPCS: 87626; 88175 ==

== ENCOUNTER 2025-04-12 10:12 | Outpatient (RCR) | payer MEDICAID, SELFPAY | END 2025-04-12 14:26 | disposition home or self-care (01) | LOC: HO.OT 10:12 | PROVIDERS: PCP Nurse Practitioner Primary Care; Visit Provider Nurse Practitioner Primary Care | DX: G56.23 Lesion of ulnar nerve, bilateral upper limbs (principal) | CPT/HCPCS: 97110; 97140; 97165; 97535 ==